=== PATIENT | female | born 1960 | race Caucasian/White ===

== ENCOUNTER 2017-04-06 06:07 | Day surgery (SDC) | payer OTHER ==
[~2017-04-06] VITALS: Ht 160 cm; Wt 69.4 kg
[~2017-04-06 06:07] MED LIST: ESTR1PAT7 TD; IBUP-2030 PO
[2017-04-06] MEDS ORDERED: LACTATED RINGERS 1,000 ML IV SCH (06:30)
[2017-04-06] MEDS ORDERED: BALANCED SALT IRRIG SOLN COMB1 500ML OP ONE (06:45)
[2017-04-06] MEDS ORDERED: PHENYLEPHRINE HCL 10% OPHTH DROPS 5ML RIGHTEYE ONE (07:35)
[2017-04-06] MEDS ORDERED: TROPICAMIDE 1% OPHTH DROPS 15ML RIGHTEYE ONE (07:35)
[2017-04-06] MEDS ORDERED: CYCLOPENTOLATE HCL 1% OPHTH DROPS 2ML RIGHTEYE ONE (07:35)
[2017-04-06] MEDS ORDERED: HYALURONATE SODIUM 14 MG/ML 0.85ML SYRINGE IO ONE ×2 (08:33→09:50)
[2017-04-06] MEDS ORDERED: FENTANYL CITRATE/PF 50MCG/ML 2ML VIAL ONE (10:12)
[2017-04-06] MEDS ORDERED: MIDAZOLAM HCL 2 MG/2 ML VIAL ONE ×2 (10:12→10:21)
[2017-04-06] MEDS ORDERED: ONDANSETRON HCL 4MG/2ML VIAL IV PRN (10:30)
[2017-04-06] MEDS ORDERED: FENTANYL CITRATE/PF 50MCG/ML 2ML VIAL IV PRN (10:30)
[2017-04-06] MEDS ORDERED: TRYPAN BLUE 0.5 ML DISP.SYRIN IO ONE (10:35)
[2017-04-06] MEDS ORDERED: PROPOFOL 200MG/20ML VIAL IV ONE (10:55)
[2017-04-06] MEDS ORDERED: CIPROFLOXACIN 0.3% OPHTH SOLN 2.5ML ONE (14:37)
[2017-04-06] MEDS ORDERED: LIDOCAINE HCL 2%/EPINEPHRINE 1:100,000 20 ML VIAL INFIL ONE (14:37)
[2017-04-06] MEDS ORDERED: BUPIVACAINE HCL/PF 0.75% (7.5MG/ML) 10ML ONE (14:37)
[2017-04-06] MEDS ORDERED: BALANCED SALT IRRIG SOLN 15ML ONE (14:37)
[2017-04-06] MEDS ORDERED: NEO/POLYMYX B SULF/DEXAMETH OPHTH OINT 3.5GM ONE (14:37)
[2017-04-06] MEDS ORDERED: LIDOCAINE HCL/PF 2% 20 MG/ML 10ML VIAL ONE (14:37)
[2017-04-06] MEDS ORDERED: TETRACAINE 0.5% OPHTH DROPS 4ML ONE (14:37)
[2017-04-06] MEDS ORDERED: PREDNISOLONE ACETATE 1% OPHTH DROPS 1ML ONE (14:37)
== END 2017-04-06 12:20 | disposition home or self-care (01) ==
LOC: OR 06:07
PROVIDERS: ATTEND Ophthalmology
DX: H25.21 Age-related cataract, morgagnian type, right eye (principal); B19.20 Unspecified viral hepatitis C without hepatic coma; Z98.890 Other specified postprocedural states; Z94.7 Corneal transplant status; Z79.899 Other long term (current) drug therapy; G89.29 Other chronic pain
CPT/HCPCS: 66984; J2250; J3010; J3490; J7120; Q9957; V2632; J2704

== ENCOUNTER 2017-07-20 07:51 | Day surgery (SDC) | payer OTHER ==
[~2017-07-20] VITALS: Ht 160 cm; Wt 68.5 kg
[~2017-07-20 07:51] MED LIST changes: +DOXY100C2 PO; +FISH PO; +GLUC1TAB PO; +MULT-1146 PO; +OCD PO; +PROG100C5 PO
[2017-07-20] MEDS ORDERED: LACTATED RINGERS 1,000 ML IV SCH (09:25)
[2017-07-20] MEDS ORDERED: ONDANSETRON HCL 4MG/2ML VIAL IV PRN (11:00)
[2017-07-20] MEDS ORDERED: LABETALOL HCL 5MG/ML VIAL 20ML IV PRN (11:00)
[2017-07-20] MEDS ORDERED: BUPIVACAINE HCL/PF 0.75% (7.5MG/ML) 10ML ONE (15:46)
[2017-07-20] MEDS ORDERED: PREDNISOLONE ACETATE 1% OPHTH DROPS 1ML ONE (15:46)
[2017-07-20] MEDS ORDERED: LIDOCAINE HCL/PF 4% 40 MG/ML 5ML AMPUL ONE (15:46)
[2017-07-20] MEDS ORDERED: TETRACAINE 0.5% OPHTH DROPS 4ML ONE (15:46)
[2017-07-20] MEDS ORDERED: CIPROFLOXACIN 0.3% OPHTH SOLN 2.5ML ONE (15:46)
[2017-07-20] MEDS ORDERED: BALANCED SALT IRRIG SOLN 15ML ONE (15:46)
[2017-07-20] MEDS ORDERED: LIDOCAINE HCL 2%/EPINEPHRINE 1:100,000 20 ML VIAL INFIL ONE (15:46)
[2017-07-20] MEDS ORDERED: NEO/POLYMYX B SULF/DEXAMETH OPHTH OINT 3.5GM ONE (15:46)
== END 2017-07-20 11:50 | disposition home or self-care (01) ==
LOC: OR 07:51
PROVIDERS: ATTEND Ophthalmology
DX: H18.891 Other specified disorders of cornea, right eye (principal); M19.90 Unspecified osteoarthritis, unspecified site; Z79.899 Other long term (current) drug therapy; B19.20 Unspecified viral hepatitis C without hepatic coma; Z94.7 Corneal transplant status
CPT/HCPCS: 65410; 88305; J3490; J7120